=== PATIENT | female | born 1985 | race Caucasian/White ===

== ENCOUNTER 2017-04-30 00:04 | Emergency (ER) | payer MEDICAID, OTHER ==
--- NOTE | 2017-04-30 01:21 | ER Document Report ---
ED Medical Screen (RME) - General Chief Complaint: Flank Pain Stated Complaint: LEFT FLANK PAIN Time Seen by Provider: 04/30/17 01:14 Notes: 31-year-old female, comes by EMS, chief complaint of pain in her left mid flank and left upper abdomen with some nausea. Denies injury. Denies vomiting, lower abdominal pain, chest pain, shortness of breath. Improved with IV Toradol from EMS. TRAVEL OUTSIDE OF THE [place] IN LAST 30 DAYS: No - Related Data Allergies/Adverse Reactions: oxycodone [Oxycodone] Adverse Reaction (Verified 04/30/17 01:15) VOMITING Past Medical History Renal/ Medical History: Denies: Hx Peritoneal Dialysis Musculoskeltal Medical History: Reports Hx Musculoskeletal Trauma - zygomatic arch fracture Psychiatric Medical History: Reports: Hx Anxiety, Hx Depression Traumatic Medical History: Reports: Hx Fractures Past Surgical History: Reports: Hx Gynecologic Surgery - colposcopy - Immunizations Immunizations up to date: Yes Hx Diphtheria, Pertussis, Tetanus Vaccination: Yes - 2012 Physical Exam - Vital signs Vitals: Temp Pulse Resp BP Pulse Ox 98.7 F 84 14 128/79 H 98 04/30/17 00:15 04/30/17 00:15 04/30/17 00:15 04/30/17 00:15 04/30/17 00:15 - Abdominal Tenderness: Tender - c/o pain with palpation to epigatric and LUQ areas; no guarding - Back Back: Other - no overt tenderness noted, complains of pain in general left mid back area Course - Vital Signs Vital signs: Temp Pulse Resp BP Pulse Ox 98.7 F 84 14 128/79 H 98 04/30/17 00:15 04/30/17 00:15 04/30/17 00:15 04/30/17 00:15 04/30/17 00:15
[2017-04-30 02:21] LABS: APPEARANCE,URINE CLEAR; BILIRUBIN,URINE NEGATIVE (NEGATIVE); GLUCOSE, URINE NEGATIVE (NEGATIVE); KETONES,URINE NEGATIVE (NEGATIVE); LEUKOCYTE ESTERASE,URINE NEGATIVE (NEGATIVE); NITRITE,URINE NEGATIVE (NEGATIVE); PROTEIN,URINE NEGATIVE (NEGATIVE); URINE SPECIFIC GRAVITY 1.013; UROBILINOGEN,URINE NEGATIVE mg/dL (<2.0)
[2017-04-30] MEDS ORDERED: CYCLOBENZAPRINE HCL 10 MG TABLET PO ONE (03:01)
[2017-04-30] MEDS ORDERED: LIDOCAINE 5% (700 MG) TRANSDERMAL ADH..PATCH TP ONE (03:01)
[2017-04-30 03:05] LABS: ALANINE AMINOTRANSFERASE 35 U/L (9-52); ALBUMIN 4.2 g/dL (3.5-5.0); ALKALINE PHOSPHATASE 109 U/L (38-126); ANION GAP 11 (5-19); ASPARTATE AMINO TRANSFERASE 16 U/L (14-36); BILIRUBIN,DIRECT 0.3 mg/dL (0.0-0.4); BILIRUBIN,TOTAL 0.6 mg/dL (0.2-1.3); BLOOD UREA NITROGEN 13 mg/dL (7-20); CALCIUM 9.7 mg/dL (8.4-10.2); CARBON DIOXIDE 24 mmol/L (22-30); CHLORIDE 107 mmol/L (98-107); CREATININE RESULT 0.63 mg/dL (0.52-1.25); GLUCOSE 97 mg/dL (75-110); LIPASE 62.2 U/L (23-300); POTASSIUM 4.3 mmol/L (3.6-5.0); SODIUM 142.1 mmol/L (137-145); TOTAL PROTEIN 7.4 g/dL (6.3-8.2)
--- NOTE | 2017-04-30 03:06 | ER Document Report ---
ED General - General Chief Complaint: Flank Pain Stated Complaint: LEFT FLANK PAIN Time Seen by Provider: 04/30/17 01:14 Notes: Patient is a 31-year-old female without past medical history who presents with 12 hours of left flank pain. She describes this as the pain actually originating from her left trapezius radiating around her left scapula and into her left lower ribs. She does describe this as a dull, constant, stabbing pain. States the pain was present when she woke up this morning. It is worsened by moving, coughing or taking a deep breath. Denies any known acute injury. She has tried hot shower and ibuprofen with moderate improvement of her pain. No history of similar symptoms in the past. She denies any history of DVT or pulmonary embolus, no use of estrogen. She has not had any hemoptysis. Denies any exertional dyspnea. No leg swelling. She has not seen a primary care doctor regarding today's concerns. TRAVEL OUTSIDE OF THE [place] IN LAST 30 DAYS: No - Related Data Allergies/Adverse Reactions: oxycodone [Oxycodone] Adverse Reaction (Verified 04/30/17 01:15) VOMITING Past Medical History - General Information source: Patient - Social History Smoking Status: Never Smoker Frequency of alcohol use: None Drug Abuse: None Lives with: Spouse/Significant other Family History: Arthritis, CAD, CVA, DM, Hyperlipidemia, Hypertension, Malignancy, Thyroid Disfunction Renal/ Medical History: Denies: Hx Peritoneal Dialysis Musculoskeltal Medical History: Reports Hx Musculoskeletal Trauma - zygomatic arch fracture Psychiatric Medical History: Reports: Hx Anxiety, Hx Depression Traumatic Medical History: Reports: Hx Fractures Past Surgical History: Reports: Hx Gynecologic Surgery - colposcopy - Immunizations Immunizations up to date: Yes Hx Diphtheria, Pertussis, Tetanus Vaccination: Yes - 2012 Review of Systems - Review of Systems Notes: Constitutional: Negative for fever. HENT: Negative for sore throat. Eyes: Negative for visual changes. Cardiovascular: Negative for chest pain. Respiratory: Negative for shortness of breath. Gastrointestinal: Negative for abdominal pain, vomiting or diarrhea. Genitourinary: Negative for dysuria. Musculoskeletal: Positive for left shoulder and flank pain Skin: Negative for rash. Neurological: Negative for headaches, weakness or numbness. 10 point ROS negative except as marked above and in HPI. Physical Exam - Vital signs Vitals: Temp Pulse Resp BP Pulse Ox 98.7 F 84 14 128/79 H 98 04/30/17 00:15 04/30/17 00:15 04/30/17 00:15 04/30/17 00:15 04/30/17 00:15 Interpretation: Normal Notes: PHYSICAL EXAMINATION: GENERAL: Well-appearing, well-nourished and in no acute distress. HEAD: Atraumatic, normocephalic. EYES: Pupils equal round and reactive to light, extraocular movements intact, sclera anicteric, conjunctiva are normal. ENT: nares patent, oropharynx clear without exudates. Moist mucous membranes. NECK: Normal range of motion, supple without lymphadenopathy LUNGS: Breath sounds clear to auscultation bilaterally and equal. No wheezes rales or rhonchi. HEART: Regular rate and rhythm without murmurs ABDOMEN: Soft, nontender, normoactive bowel sounds. No guarding, no rebound. No masses appreciated. EXTREMITIES: Normal range of motion, no pitting or edema. No cyanosis. Back: No midline spinal tenderness step-offs or deformities. There is pain on palpation of the left periscapular region as well as the left trapezius. NEUROLOGICAL: No focal neurological deficits. Moves all extremities spontaneously and on command. PSYCH: Normal mood, normal affect. SKIN: Warm, Dry, normal turgor, no rashes or lesions noted. Course - Re-evaluation Re-evalutation: 04/30/17 03:01 Patient presents with left shoulder, periscapular and lower rib pain that is been present for approximately 12 hours, worse with inspiration and movement. It is reproducible on examination. Her vitals are within normal limits at time of assessment without tachypnea, hypoxemia or tachycardia. Patient has no prior history of DVT or pulmonary embolus, use of estrogen, has not had any hemoptysis, no recent surgeries, no prior history of malignancy. She is PERC criteria negative. Abdominal exam is completely benign without any focal tenderness. Urinalysis clear and I do not clinically suspect an acute nephrolithiasis or pyelonephritis. I discussed with patient at length that she is PERC criteria negative but I also reviewed with her options of proceeding with a d-dimer test given her elevated level of concern for this diagnosis after reading things online. After reviewing the risks and benefits of this approach including a high false positivity rate of this test and an obligatory CTA thereafter with the associated radiation risks, patient has elected to avoid proceeding with d-dimer and CT at this time and has verbalized the importance of returning to the emergency department should she develop any new or worsening symptoms. Will prescribe muscle relaxants, anti-inflammatories and I have recommended heat and topical lidocaine to the affected areas. At this time will discharge with return precautions and follow-up recommendations. Verbal discharge instructions given a the bedside and opportunity for questions given. Medication warnings reviewed. Patient is in agreement with this plan and has verbalized understanding of return precautions and the need for primary care follow-up in the next 24-72 hours. - Vital Signs Vital signs: Temp Pulse Resp BP Pulse Ox 98.7 F 84 14 128/79 H 98 04/30/17 00:15 04/30/17 00:15 04/30/17 00:15 04/30/17 00:15 04/30/17 00:15 - Laboratory Result Diagrams: 04/30/17 02:34 Discharge - Discharge Clinical Impression: Left flank pain Condition: Good Disposition: HOME, SELF-CARE Additional Instructions: Your symptoms are likely due to musculoskeletal irritation. Continue take ibuprofen and Tylenol as needed for pain. Heat and warm showers can also be helpful. You have also been sent home with Flexeril which is a muscle relaxant that you can take at night. Please return to the emergency department immediately if you develop worsening shortness of breath, worsening pain, begin coughing blood, pass out, or have any other symptoms that are worrisome to you. Please follow-up with your primary care doctor in the next 2-3 days. Prescriptions: Cyclobenzaprine HCl [Flexeril 10 mg Tablet] 10 mg PO QHS PRN #15 tablet PRN Reason:
[2017-04-30 05:30] VITALS: BP 124/67
== END 2017-04-30 04:20 | disposition home or self-care (01) ==
LOC: ER 00:04
DX: R10.9 Unspecified abdominal pain (principal); R07.81 Pleurodynia; M79.1 Myalgia; M25.512 Pain in left shoulder; Z82.49 Family history of ischemic heart disease and other diseases of the circulatory system
CPT/HCPCS: 36415; 80053; 81001; 81025; 83690; 99284

== ENCOUNTER 2017-10-13 00:47 | Emergency (ER) | payer SELFPAY ==
[2017-10-13] MEDS ORDERED: NORMAL SALINE 1000 ML 1,000 ML IV ONE (02:44)
[2017-10-13] MEDS ORDERED: KETOROLAC TROMETHAMINE INJ/PF 30 MG/1 ML SDV IV ONE (02:45)
--- NOTE | 2017-10-13 02:48 | ER Document Report ---
ED General - General TRAVEL OUTSIDE OF THE [place] IN LAST 30 DAYS: No <TRISHA AGUILA - Last Filed: 10/13/17 03:48> <TORRI HALE - Last Filed: 10/13/17 05:08> - General Chief Complaint: Constipation Stated Complaint: ABDOMINAL PAIN Time Seen by Provider: 10/13/17 02:44 Notes: Patient is a 31-year-old female without past medical history, no prior surgical history who presents with 1-2 weeks of intermittent lower abdominal pain. Patient describes it as a aching, cramping pain to the general low abdomen. She states that eating worsens the pain. Nothing seems to improve the pain. She notes that she has had loss of appetite but no vomiting. She also notes that she has had very infrequent bowel movements over the past 1 week and is concerned this may be contributing to her symptoms. She denies a history of similar symptoms in the past. She does not have access to a primary care doctor. She denies any dysuria, vaginal bleeding, vaginal discharge, fever, weakness, headache, neck pain, cough or sputum production. No known sick contacts. (TRISHA AGUILA) - Related Data Allergies/Adverse Reactions: oxycodone [Oxycodone] Adverse Reaction (Verified 04/30/17 01:15) VOMITING Past Medical History - General Information source: Patient - Social History Smoking Status: Never Smoker Frequency of alcohol use: None Drug Abuse: None Family History: Arthritis, CAD, CVA, DM, Hyperlipidemia, Hypertension, Malignancy, Thyroid Disfunction Renal/ Medical History: Denies: Hx Peritoneal Dialysis Musculoskeltal Medical History: Reports Hx Musculoskeletal Trauma - zygomatic arch fracture Psychiatric Medical History: Reports: Hx Anxiety, Hx Depression Traumatic Medical History: Reports: Hx Fractures Past Surgical History: Reports: Hx Gynecologic Surgery - colposcopy - Immunizations Immunizations up to date: Yes Hx Diphtheria, Pertussis, Tetanus Vaccination: Yes - 2012 <TRISHA AGUILA - Last Filed: 10/13/17 03:48> Review of Systems <TRISHA AGUILA - Last Filed: 10/13/17 03:48> <TORRI HALE - Last Filed: 10/13/17 05:08> - Review of Systems Notes: Constitutional: Negative for fever. HENT: Negative for sore throat. Eyes: Negative for visual changes. Cardiovascular: Negative for chest pain. Respiratory: Negative for shortness of breath. Gastrointestinal: Positive for abdominal pain and nausea Genitourinary: Negative for dysuria. Musculoskeletal: Negative for back pain. Skin: Negative for rash. Neurological: Negative for headaches, weakness or numbness. 10 point ROS negative except as marked above and in HPI. (TRISHA AGUILA) Physical Exam - Vital signs Interpretation: Normal <TRISHA AGUILA - Last Filed: 10/13/17 03:48> <TORRI HALE - Last Filed: 10/13/17 05:08> - Vital signs Vitals: Temp Pulse Resp BP Pulse Ox 97.8 F 76 18 134/80 H 99 10/13/17 00:52 10/13/17 00:52 10/13/17 00:52 10/13/17 00:52 10/13/17 00:52 Notes: PHYSICAL EXAMINATION: GENERAL: Appears mildly uncomfortable but no acute distress HEAD: Atraumatic, normocephalic. EYES: Pupils equal round and reactive to light, extraocular movements intact, sclera anicteric, conjunctiva are normal. ENT: nares patent, oropharynx clear without exudates. Moist mucous membranes. NECK: Normal range of motion, supple without lymphadenopathy LUNGS: Breath sounds clear to auscultation bilaterally and equal. No wheezes rales or rhonchi. HEART: Regular rate and rhythm without murmurs ABDOMEN: Soft, nontender, normoactive bowel sounds. No guarding, no rebound. No masses appreciated. EXTREMITIES: Normal range of motion, no pitting or edema. No cyanosis. NEUROLOGICAL: No focal neurological deficits. Moves all extremities spontaneously and on command. PSYCH: Normal mood, normal affect. SKIN: Warm, Dry, normal turgor, no rashes or lesions noted. (TRISHA AGUILA) Course - Laboratory Result Diagrams: 10/13/17 03:22 <TRISHA AGUILA - Last Filed: 10/13/17 03:48> - Laboratory Result Diagrams: 10/13/17 03:22 <TORRI HALE - Last Filed: 10/13/17 05:08> - Re-evaluation Re-evalutation: 10/13/17 02:47 Presentation of generalized, lower, intermittent abdominal pain. This is been ongoing for approximately 2 weeks. Abdominal exam is benign without any focal tenderness. Vitals are normal at the time of arrival. Laboratories are unremarkable without evidence of cystitis, , pancreatitis, acute hepatitis or biliary pathology.. Patient is overall very well in appearance. Based on clinical history and examination I do not suspect an acute appendicitis , tubo-ovarian abscess, related pathology, pelvic inflammatory disease , mesenteric ischemia, or pyelonephritis. 2 view abdomen without any evidence of obstruction or perforation but does show extensive constipation. At this time will discharge with return precautions and follow-up recommendations. Verbal discharge instructions given a the bedside and opportunity for questions given. Medication warnings reviewed. Patient is in agreement with this plan and has verbalized understanding of return precautions and the need for primary care follow-up in the next 24-72 hours. (TRISHA AGUILA) 10/13/17 04:30 abdominal x ray reports no acute findings. pt to be discharged as per plan above with constipation regimen advice. abdominal exam repeated at this time and benign. pt would like to go home. 10/13/17 04:34 10/13/17 05:08 pt requesting on discharge to be tested for STDs today, gonorrhea and chlamydia , as she had a new partner that she's had unprotected intercourse with and now "doesn't trust." (TORRI HALE) - Vital Signs Vital signs: Temp Pulse Resp BP Pulse Ox 97.8 F 76 18 134/80 H 99 10/13/17 00:52 10/13/17 00:52 10/13/17 00:52 10/13/17 00:52 10/13/17 00:52 - Laboratory Laboratory results interpreted by me: 10/13/17 03:22 Calcium 10.3 H Direct Bilirubin 0.5 H AST 57 H Discharge <TRISHA AGUILA - Last Filed: 10/13/17 03:48> <TORRI HALE - Last Filed: 10/13/17 05:08> - Discharge Clinical Impression: Generalized abdominal pain Condition: Good Disposition: HOME, SELF-CARE Additional Instructions: You have been seen in the Emergency Department (ED) for abdominal pain. Your evaluation did not identify a clear cause of your symptoms but was generally reassuring. For your constipation: You should take 8 caps of MiraLAX and placed in 1 liter of Gatorade. Drink one half of the solution and wait 4 hours. If you do not have a bowel movement take the remaining half of the solution. Please follow up with your doctor as soon as possible regarding today's emergent visit and the symptoms that are bothering you. Return to the ED if your abdominal pain worsens or fails to improve, you develop bloody vomiting, bloody diarrhea, you are unable to tolerate fluids due to vomiting, fever greater than 101, or other symptoms that concern you.
[2017-10-13 03:42] LABS: APPEARANCE,URINE SLIGHTLY-CLOUDY; BILIRUBIN,URINE NEGATIVE (NEGATIVE); COLOR,URINE YELLOW; GLUCOSE, URINE NEGATIVE (NEGATIVE); KETONES,URINE NEGATIVE (NEGATIVE); LEUKOCYTE ESTERASE,URINE NEGATIVE (NEGATIVE); NITRITE,URINE NEGATIVE (NEGATIVE); PROTEIN,URINE NEGATIVE (NEGATIVE); URINE SPECIFIC GRAVITY 1.017; UROBILINOGEN,URINE NEGATIVE mg/dL (<2.0)
[2017-10-13 03:48] LABS: ALANINE AMINOTRANSFERASE 39 U/L (9-52); ALBUMIN 4.6 g/dL (3.5-5.0); ALKALINE PHOSPHATASE 94 U/L (38-126); ANION GAP 9 (5-19); ASPARTATE AMINO TRANSFERASE 57 U/L (14-36); BILIRUBIN,DIRECT 0.5 mg/dL (0.0-0.4); BILIRUBIN,TOTAL 0.6 mg/dL (0.2-1.3); BLOOD UREA NITROGEN 13 mg/dL (7-20); CALCIUM 10.3 mg/dL (8.4-10.2); CARBON DIOXIDE 27 mmol/L (22-30); CHLORIDE 106 mmol/L (98-107); GLUCOSE 84 mg/dL (75-110); LIPASE 109.4 U/L (23-300); POTASSIUM 4.5 mmol/L (3.6-5.0); SODIUM 142.2 mmol/L (137-145); TOTAL PROTEIN 7.8 g/dL (6.3-8.2)
--- NOTE | 2017-10-13 04:23 | RADIOLOGY REPORT (SQ) ---
EXAM DESCRIPTION: ABDOMEN 2 VIEWS CLINICAL HISTORY: 31 years, Female, abdominal pain, no bm COMPARISON: None. NUMBER OF VIEWS: 2 LIMITATIONS: None. FINDINGS: Paucity of bowel gas. No dilated bowel. No suspicious calcification. Intact bony structures. IMPRESSION: No acute findings. 2011 [employer]- All Rights Reserved
[2017-10-13] MEDS ORDERED: POLYETHYLENE GLYCOL 3350 POWDER 17 GM/1 PACKET PO ONE (04:35)
[2017-10-13] MEDS ORDERED: LIDOCAINE 1% INJ-PF (10 MG/ML) 30 ML SDV INJ ONE (05:25)
[2017-10-13] MEDS ORDERED: CEFTRIAXONE INJ 250 MG VIAL IM ONE (05:25)
[2017-10-13] MEDS ORDERED: AZITHROMYCIN 250 MG TABLET PO ONE (05:25)
[2017-10-13 06:02] VITALS: BP 131/64
[2017-10-13 06:56] LABS: CHLAM PCR DETECTED (NOT DETECT); GON PCR DETECTED (NOT DETECT)
== END 2017-10-13 06:02 | disposition home or self-care (01) ==
LOC: ER 00:47
DX: R10.84 Generalized abdominal pain (principal); R10.30 Lower abdominal pain, unspecified; K59.00 Constipation, unspecified; R11.0 Nausea; Z88.6 Allergy status to analgesic agent
CPT/HCPCS: 99283; 96372; 96361; 96374; 36415; 83690; 81025; 80053; 81001; 87491; 87591; 74019; J3490 ×2; J1885; J7030; J0696

== ENCOUNTER → 2019-04-18 | Outpatient (CLI) | payer SELFPAY ==
--- NOTE | 2019-04-18 14:46 | RADIOLOGY REPORT (SQ) ---
EXAM DESCRIPTION: U/S [id number] TRNABD 1GES W/ODOP COMPLETED DATE/TIME: 04/18/2019 2:12 pm REASON FOR STUDY: 9 WEEKS GESTATION OF (Z3A.09) Z3A.09 9 WEEKS GESTATION OF COMPARISON: None. TECHNIQUE: Transvaginal static and realtime grayscale images acquired of the pelvis. Additional bruce cted spectral and color Doppler images recorded. All images stored on PACs. bHCG: Not applicable. CLINICAL DATES: BREE: 11/10/2019. EGA: 10 weeks 4 days LIMITATIONS: None. FINDINGS: FETUS: No intrauterine is visualized. GESTATIONAL SAC, CRL AND YOLK SAC: Not visualized. UTERUS: The uterus measures 10.2 x 6.6 x 5.9 cm. No masses. No anomalies. CERVICAL LENGTH: 2.8 cm Closed. RIGHT ADNEXA: The right ovary measures 2.5 x 2.7 x 3.2 cm. Normal ovary with normal vascular flow. No adnexal free fluid. No adnexal masses. LEFT ADNEXA: The left ovary measures 3.2 x 2.4 x 2.3 cm. Normal ovary with normal vascular flow. No adnexal free fluid. No adnexal masses. FREE FLUID: None. OTHER: No other significant finding. IMPRESSION: 1. No INTRAUTERINE is visualized. Clinical correlation, correlation with lab values and follow-up examination if clinically indicated. TECHNICAL DOCUMENTATION: JOB ID: [id number] [employer]- All Rights Reserved rev-02/09 Reading location - IP/workstation name: [email or web address]
== END ==
LOC: RAD 12:56
PROVIDERS: ATTEND Midwife
DX: Z30.09 Encounter for other general counseling and advice on contraception (principal)
CPT/HCPCS: 76801

== ENCOUNTER 2019-05-07 17:44 | Emergency (ER) | payer SELFPAY | END 2019-05-07 17:53 | disposition left against medical advice (07) | LOC: ER 17:44 | DX: Z53.21 Procedure and treatment not carried out due to patient leaving prior to being seen by health care provider (principal) ==